=== PATIENT | female | born 1950 | race Caucasian/White ===

== ENCOUNTER 2022-11-21 02:35 | Day surgery (SDC) | payer MEDICARE, SELFPAY ==
[2022-11-13 13:47] VITALS: BMI 20.5
[2022-11-21 09:05] VITALS: BP 153/56; PULSE 64; RESP 20; TEMP 36.3; O2SAT 98; BMI 20.1
[2022-11-21] MEDS: LACTATED RINGERS 1,000 ML 150 ML IV CONT (09:15)
--- NOTE | 2022-11-21 09:44 | PM.HPGS ---
History of Present Illness History of Present Illness Consent: Risks, benefits, and alternatives have been discussed and questions answered. Patient agrees to proceed with procedure. Chief complaint: neoplasm screening Narrative: Myra Inman is a 72 year old female here for screening colonoscopy, last one about 20 years ago Review of Systems Constitutional: Constitutional: Denies headache(s) and Denies weakness Eyes: Eyes: Denies blurry vision ENT: Reports Normal hearing present, Denies headache(s) and Denies neck pain Cardiovascular: Cardiovascular: Denies chest pain and Denies dyspnea Respiratory: Respiratory: Denies dyspnea Gastrointestinal: Gastrointestinal: Reports no additional gastrointestinal complaints Genitourinary: Genitourinary: Denies dysuria Musculoskeletal: Musculoskeletal: Denies neck pain Integumentary/Breasts: Skin/Breast: Denies dry skin Neurologic: Reports Normal hearing present, Denies headache(s) and Denies weakness Psychiatric: Psychiatric: Denies anxiety Endocrine: Endocrine: Denies change in body appearance Hematologic/Lymphatic: Hematologic/Lymphatic: Denies easy bleeding Allergic/Immunologic: Allergic/Immunologic: Denies urticaria PMFSH Past Medical History Medical History (Updated 09/17/22 @ 21:14 by Nehal Vargas MD) Benign essential HTN Endometriosis Personal history of renal artery stenosis Surgical History Surgical History (Updated 09/12/22 @ 22:56 by Nehal Vargas MD) H/O right nephrectomy Hx of appendectomy S/P CABG x 4 S/P MAINOR (total abdominal hysterectomy) Family History Family History (Updated 09/11/22 @ 09:40 by Jaimee Estes) Father Heart disease Mother Heart disease Hypertension Sibling Hypertension Heart disease Social History Social History (Updated 09/11/22 @ 09:41 by Jaimee Estes) Social History: Smoking status: Never smoker Second hand tobacco smoke exposure: No Alcohol intake: current Substance use: never Substance use type: does not use Lack of Transportation: No Lack of Food: Never True Current Housing: I Have Housing Concerned About Future Housing: No Difficulty Paying Gas/Electric Bills: No Difficulty Paying for Meds: No Currently Unemployed: YES Education: Decline to Answer Difficulty w/ Childcare or Family Care: No Living arrangements: with family Occupation/Education: retired Gender identity (if verbalized by the patient): Female Sexual Orientation (if Verbalized by the Patient): Straight or Heterosexual Spiritual care concerns: No Meds Home Medications and Allergies Home Medications Medication Instructions Recorded Confirmed Type atorvastatin 40 mg tablet 40 mg PO DAILY 09/11/22 11/13/22 History docusate sodium 100 mg capsule 100 mg PO DAILY 09/11/22 11/13/22 History ezetimibe 10 mg tablet 10 mg PO DAILY 09/11/22 11/13/22 History metoprolol tartrate 50 mg tablet 50 mg PO BID 09/11/22 11/13/22 History ticagrelor 60 mg tablet (Brilinta) 60 mg PO Q12H 09/11/22 11/21/22 History losartan 100 mg tablet 100 mg PO DAILY #90 tabs 11/05/22 11/13/22 Rx pantoprazole 40 mg tablet,delayed 40 mg PO QAM #90 tabs 11/05/22 11/13/22 Rx release Calcium + Vitamin D 1 tab-cap PO DAILY 11/13/22 11/13/22 History amlodipine 10 mg tablet 10 mg PO DAILY 11/13/22 11/13/22 History aspirin 81 mg tablet 81 mg PO DAILY 11/13/22 11/13/22 History multivitamin with minerals-folic 1 tablet PO DAILY 11/13/22 11/13/22 History acid 0.4 mg tablet Allergies Allergy/AdvReac Type Severity Reaction Status Date / Time ibuprofen Allergy Intermediate Hives Verified 11/21/22 09:03 Penicillins Allergy Intermediate Hives Verified 11/21/22 09:03 Vital Signs Vital Signs - 24 hr 11/21/22 09:05 Temperature 97.3 F L Pulse Rate 64 Respiratory Rate 20 Blood Pressure 153/56 H Pulse Oximetry 98 Oxygen Delivery Room Air Exam Const: General: comfortable an
--- NOTE | 2022-11-21 09:51 | WPDANESEPPF ---
Anes - Initial Pre Proc Eval Procedure: Operation Date: 11/21/22 10:30 Proposed Procedures p Screening Colonoscopy - Luis A Gaspar MD Date/Time: 11/21/22 09:51 Surgeon: Luis A Gaspar MD Pre Op Diagnosis: neoplasm screening Patient Data Age: 72 Gender: F Height: 1.6 m Weight: 51.5 kg Last Vital Signs Temp 97.3 F L 11/21/22 09:05 Pulse 64 11/21/22 09:05 Resp 20 11/21/22 09:05 BP 153/56 H 11/21/22 09:05 Pulse Ox 98 11/21/22 09:05 O2 Del Method Room Air 11/21/22 09:05 Allergies Allergy/AdvReac Type Severity Reaction Status Date / Time ibuprofen Allergy Intermediate Hives Verified 11/21/22 09:03 Penicillins Allergy Intermediate Hives Verified 11/21/22 09:03 Home Medications Medication Instructions Recorded Confirmed Type atorvastatin 40 mg tablet 40 mg PO DAILY 09/11/22 11/13/22 History docusate sodium 100 mg capsule 100 mg PO DAILY 09/11/22 11/13/22 History ezetimibe 10 mg tablet 10 mg PO DAILY 09/11/22 11/13/22 History metoprolol tartrate 50 mg tablet 50 mg PO BID 09/11/22 11/13/22 History ticagrelor 60 mg tablet (Brilinta) 60 mg PO Q12H 09/11/22 11/21/22 History losartan 100 mg tablet 100 mg PO DAILY #90 tabs 11/05/22 11/13/22 Rx pantoprazole 40 mg tablet,delayed 40 mg PO QAM #90 tabs 11/05/22 11/13/22 Rx release Calcium + Vitamin D 1 tab-cap PO DAILY 11/13/22 11/13/22 History amlodipine 10 mg tablet 10 mg PO DAILY 11/13/22 11/13/22 History aspirin 81 mg tablet 81 mg PO DAILY 11/13/22 11/13/22 History multivitamin with minerals-folic 1 tablet PO DAILY 11/13/22 11/13/22 History acid 0.4 mg tablet Patient hx anesthesia problems: none Family hx anesthesia problems: none Results Review: All pre-operative results and documents have been reviewed as part of the pre-operative evaluation. [facility] Past Medical History Medical History (Updated 09/17/22 @ 21:14 by Nehal Vargas MD) Benign essential HTN Endometriosis Personal history of renal artery stenosis Surgical History Surgical History (Updated 09/12/22 @ 22:56 by Nehal Vargas MD) H/O right nephrectomy Hx of appendectomy S/P CABG x 4 S/P MAINOR (total abdominal hysterectomy) Family History Family History (Updated 09/11/22 @ 09:40 by Jaimee Estes) Father Heart disease Mother Heart disease Hypertension Sibling Hypertension Heart disease Social History Social History (Updated 09/11/22 @ 09:41 by Jaimee Estes) Social History: Smoking status: Never smoker Second hand tobacco smoke exposure: No Alcohol intake: current Substance use: never Substance use type: does not use Lack of Transportation: No Lack of Food: Never True Current Housing: I Have Housing Concerned About Future Housing: No Difficulty Paying Gas/Electric Bills: No Difficulty Paying for Meds: No Currently Unemployed: YES Education: Decline to Answer Difficulty w/ Childcare or Family Care: No Living arrangements: with family Occupation/Education: retired Gender identity (if verbalized by the patient): Female Sexual Orientation (if Verbalized by the Patient): Straight or Heterosexual Spiritual care concerns: No Anes - Eval Final PreProcedure Day of Procedure 11/21/22 09:51 Patient weight: normal Heart: regular rate and rhythm Lungs: clear to auscultation Airway: Mallampati scale class II Neurological: alert and oriented Last oral intake: >/= 8 hours ASA classification: III Emergent: no Anesthetic plan: proceed Anesthesia type and monitoring: general GIVS and standard monitoring Results Review: All pre-operative results and documents have been reviewed as part of the pre-operative evaluation. Informed Consent: The patient's anesthetic plan and its attendant risks and benefits were discussed with the patient/family/POA. Questions were solicited and answers provided to the satisfaction of the patient/family/POA.
[2022-11-21 10:09] VITALS: BP 98/46; PULSE 58; RESP 22; O2SAT 96
[2022-11-21 10:19] VITALS: BP 108/66; PULSE 58; RESP 21; O2SAT 98
[2022-11-21 10:29] VITALS: BP 109/55; PULSE 59; RESP 21; O2SAT 98
== END 2022-11-21 10:38 | disposition home or self-care (01) ==
PROVIDERS: PCP Family Medicine; Visit Provider Internal Medicine Gastroenterology
PROC: 0DJD8ZZ Inspection of Lower Intestinal Tract, Via Natural or Artificial Opening Endoscopic (ICD-10-PCS; CPT 45378; principal; 2022-11-21 10:30)
DX: Z12.11 Encounter for screening for malignant neoplasm of colon (principal); D12.2 Benign neoplasm of ascending colon; D12.3 Benign neoplasm of transverse colon; K57.30 Diverticulosis of large intestine without perforation or abscess without bleeding; K64.8 Other hemorrhoids; Z79.01 Long term (current) use of anticoagulants; Z79.82 Long term (current) use of aspirin; I10 Essential (primary) hypertension; Z95.1 Presence of aortocoronary bypass graft; Z90.5 Acquired absence of kidney
CPT/HCPCS: 45385; 88305; J2001; J2704; J7120

== ENCOUNTER 2023-12-04 07:53 | Outpatient (CLI) | payer MEDICARE, SELFPAY ==
--- NOTE | ~2023-12-04 | DEXA_ITS ---
Bone Density Report Name: MIKE MIGUEL Age: 73 Sex: Female Ethnicity: White Date of : 1950 Indication: postmenopausal; screening for osteoporosis; height loss; hysterectomy; Referring Provider: RAULITO PERRY Study: Bone densitometry was performed. Exam Date: December 04, 2023 Accession number: [id number] Bone Density: Region BMD T-score Z-score Classification AP Spine(L1-L4) 1.084 0.3 2.8 Normal Femoral Neck (Left) 0.831 -0.2 1.9 Normal Total Hip (Left) 0.985 0.4 2.2 Normal Femoral Neck (Right) 0.817 -0.3 1.8 Normal Total Hip (Right) 0.943 0.0 1.8 Normal Total Hip Mean 0.964 0.2 2.0 Normal World Health Organization criteria for BMD impression classify patients as: Normal (T-score at or above -1.0), Osteopenia (T-score between -1.0 and -2.5), or Osteoporosis (T-score at or below -2.5). 10-year Fracture Risk: FRAX not reported because: All T-scores for Spine Total, Hip Total, Femoral Neck at or above -1.0 Clinical Information Provided by Patient: Has used the following medications: Vitamin D, Calcium Has the following medical conditions: Hysterectomy Patient maximum height was 64.0 Onset of menses at age 11 Number of children 2 Impression: The patient has normal bone mass. Discussion: BONE DENSITY IS ABOVE THE MINIMUM DESIRABLE LEVEL AT ALL SKELETAL SITES TESTED. This patient?s bone mineral density is above the minimum desirable level (T-score -1.0 or better) at all sites measured. The patient should follow a healthful lifestyle (good nutrition with adequate calcium and vitamin D, and appropriate weight-bearing exercise). Follow-Up: Consider repeating this study in 5 years or sooner if there is some new clinical indication. Reported by: JEFF on 12/04/2023 8:39:00 AM. Reviewed, dictated and finalized at location AIvonne RANKIN
--- NOTE | ~2023-12-04 | MM_ITS ---
EXAMINATION: MM screening otilio BI w garcia HISTORY: Screening TECHNIQUE: Craniocaudal and mediolateral oblique 3-D tomosynthesis images were obtained and synthetic 2-D images were generated. CAD analysis was submitted and interpreted. COMPARISON: No prior mammogram is available for comparison at this institution. BREAST PARENCHYMAL COMPOSITION: Dense: The breasts are heterogeneously dense, which may obscure small masses FINDINGS: There are asymmetries in the upper outer and upper inner quadrants of the left breast. Ther e is no mammographic evidence for malignancy in the right breast. IMPRESSION: 1. Left breast asymmetries. 2. Additional mammographic views and possible breast ultrasound are recommended. BI-RADS Category 0: Incomplete: Needs additional imaging evaluation. Reviewed, dictated and finalized at location B. IMPRESSION: 1. Left breast asymmetries. 2. Additional mammographic views and possible breast ultrasound are recommended . BI-RADS Category 0: Incomplete: Needs additional imaging evaluation.
== END 2023-12-04 07:54 | disposition home or self-care (01) ==
LOC: ANHIMG 07:54
PROVIDERS: PCP Family Medicine; Visit Provider Physician Assistant
DX: Z12.31 Encounter for screening mammogram for malignant neoplasm of breast (principal); Z78.0 Asymptomatic menopausal state; R92.8 Other abnormal and inconclusive findings on diagnostic imaging of breast
CPT/HCPCS: 77063; 77067; 77080

== ENCOUNTER 2023-12-24 10:21 | Outpatient (CLI) | payer MEDICARE, SELFPAY ==
--- NOTE | ~2023-12-24 | MMUS_ITS ---
EXAMINATION: MM diagnostic otilio LT w garcia, US breast LT complete HISTORY: Follow-up left breast asymmetries TECHNIQUE: Additional 3-D tomosynthesis images of the left breast were performed and synthetic 2-D im ages were generated. CAD analysis was submitted and interpreted. High resolution complete left breast ultrasound was performed. COMPARISON: 12/04/2023 BREAST PARENCHYMAL COMPOSITION: Dense: The breasts are heterogeneously dense, which may obscure small masses FINDINGS: MAMMOGRAPHIC FINDINGS: There are no suspicious masses, calcifications or architectural distortion in the left breast to sugg est malignancy. ULTRASOUND: Complete US of all 4 quadrants of the breast/s and retroareolar region was reviewed. Normal heterogen eous echotexture without focal solid or cystic mass in the left breast. IMPRESSION: 1. No evidence for malignancy in the left breast. 2. Routine yearly screening mammogram and regular clinical breast examination are recommended. BI-RADS Category 1: Negative Reviewed, dictated and finalized at location B. IMPRESSION: 1. No evidence for malignancy in the left breast. 2. Routine yearly screening mammogram and regular clinical breast examination a re recommended. BI-RADS Category 1: Negative
== END 2023-12-24 10:22 | disposition home or self-care (01) ==
LOC: ANHIMG 10:22
PROVIDERS: PCP Family Medicine; Visit Provider Student in an Organized Health Care Education/Training Program
DX: R92.8 Other abnormal and inconclusive findings on diagnostic imaging of breast (principal)
CPT/HCPCS: 76641; 77061; 77065; G0279

== ENCOUNTER 2025-01-22 14:39 | Outpatient (CLI) | payer MEDICARE, SELFPAY ==
--- NOTE | ~2025-01-22 | MM_ITS ---
EXAMINATION: MM screening [facility] BI w garcia HISTORY: Screening TECHNIQUE: Craniocaudal and mediolateral oblique 3-D tomosynthesis images were obtained and synthetic 2-D images were generated. CAD analysis was submitted and interpreted. COMPARISON: Comparison to multiple prior studies sequentially, with oldest reviewed study dated 12/04/2023. BREAST PARENCHYMAL COMPOSITION: Not dense: There are scattered areas of fibroglandular density. FINDINGS: There is no evidence of suspicious mass, calcification, or architectural distortion to suggest malignancy in either breast. There has been no suspicious interval change. IMPRESSION: 1. No mammographic evidence of malignancy. 2. Recommend routine screening mammography in one year. BI-RADS Category 1: Negative Reviewed, dictated and finalized at location B.
--- OUTSIDE RECORDS SUMMARY | 2025-01-22 14:44 | XMS_ITS | Clinical Summary ---
Author Organization [facility] Address [address] [place] [address] Care Team Providers Care Employment Adjudicator Name Role Phone Eric Hermosillo MD Primary Care Provider Unavaila ble Allergies Active Allergy Reactions Criticality Noted Date Comments Ibuprofen Rash High 05/18/2014 - Penicillins Rash Medium 08/12/2006 - Medications aspirin 81 MG chewable tablet Chew 81 mg by mouth daily. 01/05/2015 Active loratadine 10 MG tablet Take 1 tablet by mouth daily. 5 12/23/2017 Active multivitamin tablet Take 1 tablet by mouth daily. 01/05/2015 Active nitroglycerin 0.[address] 1 tablet (0.4 mg total) under the tongue every 5 (five) minutes as needed for Chest Pain. 25 tablet 06/11/2018 Active pantoprazole EC 40 MG tablet TAKE 1 TABLET(40 MG) BY MOUTH DAILY 11/07/2018 Active docusate sodium 100 MG capsule Take 100 mg by mouth daily. Active Calcium Carbonate Antacid 600 MG Chew Tab Chew 1 tablet by mouth 2 (two) times daily. Active meclizine 25 MG tablet Take 25 mg by mouth. 04/06/2020 Active ATORVASTATIN 40 MG tablet TAKE 1 TABLET(40 MG) BY MOUTH DAILY 90 tablet 3 10/31/2021 Active BRILINTA 60 MG tablet TAKE 1 TABLET(60 MG) BY MOUTH TWICE DAILY 180 tablet 3 01/04/2022 Active metoprolol tartrate (LOPRESSOR) 50 MG tablet TAKE 1 TABLET(50 MG) BY MOUTH TWICE DAILY 180 tablet 3 01/09/2022 Active amLODIPine (NORVASC) 10 MG tablet Take 1 tablet (10 mg total) by mouth daily. 90 tablet 1 01/17/2022 Active losartan (COZAAR) 100 MG tablet TAKE 1 TABLET(100 MG) BY MOUTH DAILY 90 tablet 1 05/07/2022 Active ezetimibe (ZETIA) 10 MG tablet TAKE 1 TABLET(10 MG) BY MOUTH DAILY 90 tablet 09/25/2022 Active Active Problems Problem Noted Date Diagnosed Date High risk medication use 10/24/2021 Essential (primary) hypertension 09/26/2018 Hyperlipidemia, unspecified hyperlipidemia type 09/26/2018 CAD (coronary artery disease) Resolved Problems Problem Noted Date Diagnosed Date Resolved Date Paroxysmal atrial fibrillati on (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 Gender Identity Not on file Sexual Orientation Not on file Last Filed Vital Signs Vital Sign Reading Time Taken Comments Blood Pressure 128/72 10/24/2021 11:06 AM CDT Pulse 63 10/24/2021 11:06 AM CDT Temperature 36.4 C (97.5 F) 10/28/2019 10:20 AM CDT Respiratory Rate 16 10/28/2019 10:20 AM CDT Oxygen Saturation 97% 10/24/2021 11:06 AM CDT Inhaled Oxygen Concentration - - Weight 54 kg (119 lb) 10/24/2021 11:06 AM CDT Height 160 cm (5' 3) 10/24/2021 11:06 AM CDT Body Mass Index 21.08 10/24/2021 11:06 AM CDT Plan of Treatment Health Maintenance Due Date Last Done Comments ASCVD Statin 1950 Hepatitis C 1966 DTaP, Tdap and Td Vaccines ( 1 - Tdap) 1967 Zoster Vaccines (1 of 2) 1998 Annual Medicare Wellness Visit 2013 Dexa Scan (General) 2013 Pneumococcal Vaccine: 50+ Years (2 of 2 - PPSV23) 02/17/2018 12/23/2017 ASCVD LDL 06/29/2021 06/29/2020, 11/02/2019, 10/14/2018 RSV Immunization or 60+ Years (1 - 1-dose 75+ series) 2023 COVID-19 Vaccine (2023-2 5 season) 2024 Meningococcal B Vaccine Aged Out No l onger eligible based on patient's age to complete this topic Meningococcal Vaccine Aged Out No jose armando ana maría eligible based on patient's age to complete this topic RSV Immunizations Under 20 Months Aged Out No longer eligible b ased on patient's age to complete this topic Procedures Procedure Name Priority Date/Time Associated Diagnosis Comments LIPID PANEL Routine 06/29/2020 Essential (primary) hypertension Hyperlipidemia, unspecified hyperlipidemia type from Last 3 Months or Most Recently Relevant to Health Maintenance Results * LIPID PANEL (06/29/2020) CHOLESTEROL 152 HDL 62 TRIGLYCERIDES 89 NON HDL CHOLESTEROL 90 CHOL/HDL RATIO 2.5 LDL (CALCULATED) 73 06/29/2020 us Jose Gonzalez MD LABORATORY Final Result from Last 3 Months or Most Recently Relevant to Health Maintenance Insurance [employer] Care Teams Employment Adjudicator Relationship Specialty Start Date End Date Eric Hermosillo MD PCP - General FAMILY PRACTICE 04/23/18
--- OUTSIDE RECORDS SUMMARY | 2025-01-22 14:44 | XMS_ITS | Clinical Summary ---
Author Organization [facility] [place] [address] Address [address] [place] [address] Care Team Providers Care Api Developer Name Role Phone Nehal Vargas MD Primary Care Provider Allergies Active Allergy Reactions Criticality Noted Date Comments Ibuprofen Rash High 05/18/2014 - - Penicillins Rash Medium 08/12/2006 - - Medications docusate sodium (COLACE) 100 mg capsule Take 1 capsule (100 mg total) by mouth daily 3 Active losartan (COZAAR) 100 mg tablet Take 0.5 tablets (50 mg total) by mouth daily 3 Active ezetimibe (ZETIA) 10 mg tablet Take 1 tablet (10 mg total) by mouth daily 2 Active aspirin 81 mg chewable tablet Take 1 tablet (81 mg total) by mouth daily 5 Active calcium carbonate-gene min D3 1,250 mg (500 mg elemental)-400 unit tablet Take 1 tablet by mouth daily 5 Active multivitamin tablet Take 1 tablet by mouth daily 5 Active Eliquis 5 mg tablet TAKE 1 TABLET BY MOUTH 2 TIMES DAILY 60 tablet 12 4 Active amLODIPine (NORVASC) 10 mg tablet TAKE 1 TABLET(10 MG) BY MOUTH DAILY 30 tablet 11 4 Active spironolactone (ALDACTONE) 25 mg tablet TAKE 1 TABLET(25 MG) BY MOUTH DAILY 30 tablet 6 5 Active carvediloL (COREG) 6.25 mg tablet TAKE 2 TABLETS(12. 5 MG) BY MOUTH TWICE DAILY WITH MEALS 180 tablet 5 Active atorvastatin (LIPITOR) 40 mg tablet TAKE 1 TABLET(40 MG) BY MOUTH EVERY NIGHT 40 tablet 6 5 Active atorvastatin (LIPITOR) 40 mg tablet Take 1 tablet (40 mg total) by mouth nightly 40 tablet 6 4 01/13/20 25 Discontinued Active Problems No known active problems Resolved Problems Problem Noted Date Diagnosed Date Resolved Date Coronary artery disease invo lving platinum coronary artery of platinum heart without angina pectoris 10/17/2022 10/17/2022 S/P CABG x 3 10/17/2022 10/17/2022 History of sudden cardiac ar rest successfully resuscitated 10/17/2022 10/17/2022 Medical History Medical History Date Comments Hypertension Family History Medical History Relation Name Comments Heart attack Father Hypertension Mother Stroke Mother Heart attack Sister Relation Name Status Comments Father Mother Sister Social History Tobacco Use Types Packs/Day Years Used Date Smoking Tobacco: Never Smokeless Tobacco: Never Tobacco Cessation:Counseling Given: Not Answered Comments Unknown Sex and Gender Information Value Date Recorded Sex Assigned at Not on file Legal Sex Female 12:02 PM CDT Gender Identity Female 10/25/2022 9:29 AM CDT Sexual Orientation Straight 10/25/2022 9: 29 AM CDT Obstetrics History Last Filed Vital Signs Vital Sign Reading Time Taken Comments Blood Pressure 124/70 04/15/2024 9:31 AM RETAIL WAREHOUSE SUPERVISOR Pulse 96 04/15/2024 9:31 AM RETAIL WAREHOUSE SUPERVISOR Temperature - - Respiratory Rate - - Oxygen Saturation 98% 04/15/2024 9:31 AM RETAIL WAREHOUSE SUPERVISOR Inhaled Oxygen Concentration - - Weight 54.3 kg (119 lb 9.6 oz) 04/15/2024 9:31 A M RETAIL W[employer]HOUSE SUPERVISOR Height 157.5 cm (5' 2) 04/15/2024 9:31 AM RETAIL WAREHOUSE SUPERVISOR Body Mass Index 21.88 04/15/2024 9:31 AM RETAIL WAREHOUSE SUPERVISOR Plan of Treatment Health Maintenance Due Date Last Done Comments Depression Screening 1950 Fall Risk Assessment 1950 Hepatitis C Screening 1950 Osteoporosis Screening-Bone Density Scan 1950 Hepatitis B Screening 1966 Zoster Vaccine (1 of 2) 1998 Well Visit 65+ 2013 Covid-19 Vaccine (2 2024-2 6 season) 2024 02/01/2022 Influenza Vaccine (#1) 2024 , 02/13/2020, 02/09/2018, Additional history exists DTaP/Tdap/Td Vaccine (4 - Td or Tdap) 04/19/2028 04/19/2018, 12/16/2016, 01/12/2010 Pneumococcal vaccine 65+ Completed 12/23/2017, 06/2013 Breast Cancer Screening-Mammogram Discontinued 08/24/2022, 08/24/2022, 04/27/2021, Additional history exists Insurance Care Teams Api Developer Relationship Specialty Start Date End Date Nehal Vargas MD [address] [place] [id number] PCP - General Family Medicine 09/18/22
== END 2025-01-22 14:40 | disposition home or self-care (01) ==
LOC: ANHFOHIMG 14:41
PROVIDERS: PCP Family Medicine; Visit Provider Family Medicine
DX: Z12.31 Encounter for screening mammogram for malignant neoplasm of breast (principal)
CPT/HCPCS: 77063; 77067